=== PATIENT | female | born 1935 | race Caucasian/White ===

== ENCOUNTER 2016-10-17 15:14 | Emergency (ER) | payer OTHER, MEDICAID ==
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
[2016-10-17] MEDS ORDERED: TETANUS, DIPHTHERIA TOX (7YR+) 0.5 ML INJ IM ONE (15:30)
[2016-10-17 15:58] LABS: % IMMATURE GRANULYOCYTES 0.4 % (0.0-1.1); ABSOLUTE IMMATURE GRANULOCYTES 0.03 10^3/uL (0.00-0.10); ADD DIFF? NO; ADD MORPH? NO; ADD SCAN? NO; ATYPICAL LYMPHOCYTE FLAG 0 (0-99); FRAGMENT RBC FLAG 0 (0-99); HEMATOCRIT 46.1 % (38.0-47.0); HEMOGLOBIN 14.4 g/dL (12.6-16.3); LEFT SHIFT FLG 0 (0-99); LIPEMIA HEMOLYSIS FLAG 80 (0-99); MEAN CELL HEMOGLOBIN 27.5 pg (27.9-34.1); MEAN CELL HEMOGLOBIN CONCENTR. 31.2 g/dL (32.4-36.7); MEAN PLATELET VOLUME 10.7 fL (8.7-11.7); PLATELET CLUMPS FLAG 0 (0-99); PLATELET COUNT 178 10^3/uL (150-400); RED BLOOD CELL COUNT 5.24 10^6/uL (4.18-5.33); RED CELL DISTRIBUTION WIDTH 14.3 % (11.5-15.2)
[2016-10-17 16:13] LABS: ANION GAP 8 mEq/L (8-16); CALCIUM 8.3 mg/dL (8.5-10.4); CARBON DIOXIDE 28 mEq/l (22-31); CHLORIDE 104 mEq/L (97-110); CREATININE 1.1 mg/dL (0.6-1.0); GLOMERULAR FILTRATION RATE 47; GLUCOSE 105 mg/dL (70-100); POTASSIUM 4.1 mEq/L (3.5-5.2); SODIUM 140 mEq/L (134-144)
[2016-10-17 16:32] LABS: CK-MB INTERPRETATION NEGATIVE (NEGATIVE)
[2016-10-17 16:35] LABS: CREATINE KINASE-MB FRACTION 5.74 ng/mL (0-3.19)
[2016-10-17] MEDS ORDERED: ONDANSETRON DISINTEGRATING 4 MG TAB PO PRN (16:39)
[2016-10-17] MEDS ORDERED: ACETAMINOPHEN 325 MG TAB PO PRN (16:39)
[2016-10-17] MEDS ORDERED: ONDANSETRON 4 MG/2 ML VIAL IVP PRN (16:39)
[2016-10-17] MEDS ORDERED: SILVER SULFADIAZINE 400 GM JAR TP SCH (16:45)
[2016-10-17 17:05] LABS: MAGNESIUM 1.9 mg/dL (1.6-2.3)
[2016-10-17 17:12] LABS: TROPONIN I 0.064 ng/mL (0-0.034)
[2016-10-17 17:33] LABS: COLOR YELLOW; LEUKOCYTE ESTERASE,URINE NEGATIVE (NEGATIVE); NITRITE,URINE NEGATIVE (NEGATIVE)
[2016-10-17 17:38] LABS: MUCUS TRACE /lpf (NONE-1+)
--- NOTE | 2016-10-17 17:43 | CPEKG ---
Heart Rate: 91 RR Interval: 659 P-R Interval: 124 QRSD Interval: 122 QT Interval: 408 QTC Interval: 503 P [place]: 44 QRS [place]: 69 T Wave [place]: 4 EKG Severity - ABNORMAL ECG - EKG Impression: SINUS RHYTHM EKG Impression: RBBB AND LPFB Electronically Signed By: Magen Rivera 17-Oct-2016 17:56:07
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
[2016-10-17 20:39] VITALS: BP 130/66; PULSE 93; RESP 16; TEMP 99.7; O2SAT 92
[2016-10-18] MEDS ORDERED: ENOXAPARIN 40 MG/0.4 ML SYR SC SCH (09:00)
== END 2016-10-17 20:39 | disposition short-term general hospital (02) ==
LOC: EDUNIT# → UNDOADMIN 16:19
DX: R53.1 Weakness (principal); T21.25XA Burn of second degree of buttock, initial encounter; Z23 Encounter for immunization; X11.0XXA Contact with hot water in bath or tub, initial encounter; Y92.59 Other trade areas as the place of occurrence of the external cause; Y99.8 Other external cause status; Y93.E1 Activity, personal bathing and showering